=== PATIENT | female | born 2000 | race American Indian/Alaskan Native ===

== ENCOUNTER 2020-08-18 19:21 | Emergency (ER) | payer SELFPAY ==
--- NOTE | 2020-08-18 19:44 | Emergency Department Report ---
- General Chief Complaint: Animal Bite Stated Complaint: SPIDER BITE/RT SIDE Time Seen by Provider: 08/18/20 19:38 Source: patient Mode of arrival: Ambulatory Limitations: No Limitations - History of Present Illness Initial Comments: 20-year-old female presents to the emerge department complaining of pain to her right flank in the due to a evolving insect bite. Ports no fever, chills, sweats reports no numbness no tingling. -: days(s) (3) Location: chest Patient Tetanus UTD: No Associated Symptoms: other. denies: suspect foreign body present - Related Data Previous Rx's Medication Instructions Recorded Last Taken Type Mupirocin [Bactroban 2%] 1 applic TP TID #1 tube 08/18/20 Unknown Rx Sulfamethoxazole/Trimethoprim 1 each PO BID #20 tablet 08/18/20 Unknown Rx [Bactrim DS TAB] cephALEXin [Keflex] 500 mg PO Q8HR #30 cap 08/18/20 Unknown Rx Allergies Allergy/AdvReac Type Severity Reaction Status Date / Time almond AdvReac Unknown Verified 08/18/20 19:34 apple AdvReac Unknown Verified 08/18/20 19:34 hernandez AdvReac Unknown Verified 08/18/20 19:34 ED Review of Systems ROS: Stated complaint: SPIDER BITE/RT SIDE Other details as noted in HPI Comment: All other systems reviewed and negative ED Past Medical Hx - Past Medical History Previous Medical History?: No - Surgical History Past Surgical History?: No - Social History Smoking Status: Never Smoker Substance Use Type: None - Medications Home Medications: Home Medications Medication Instructions Recorded Confirmed Last Taken Type Mupirocin [Bactroban 2%] 1 applic TP TID #1 tube 08/18/20 Unknown Rx Sulfamethoxazole/Trimethoprim 1 each PO BID #20 tablet 08/18/20 Unknown Rx [Bactrim DS TAB] cephALEXin [Keflex] 500 mg PO Q8HR #30 cap 08/18/20 Unknown Rx ED Physical Exam - General Limitations: No Limitations General appearance: alert, in no apparent distress - Head Head exam: Present: atraumatic, normocephalic - Eye Eye exam: Present: normal appearance - ENT ENT exam: Present: mucous membranes moist - Neck Neck exam: Present: normal inspection - Respiratory Respiratory exam: Present: normal lung sounds bilaterally. Absent: respiratory distress - Cardiovascular Cardiovascular Exam: Present: regular rate, normal rhythm. Absent: systolic murmur, diastolic murmur, rubs, gallop - GI/Abdominal GI/Abdominal exam: Present: soft, normal bowel sounds - Extremities Exam Extremities exam: Present: normal inspection - Back Exam Back exam: Present: normal inspection - Neurological Exam Neurological exam: Present: alert, oriented X3, CN II-XII intact - Psychiatric Psychiatric exam: Present: normal affect, normal mood - Skin Skin exam: Present: warm, dry, erythema (Pustule noted no induration early boil/abscess formation). Absent: rash ED Medical Decision Making - Medical Decision Making Small papule/pustule to the right flank and rib area. No induration no cellulitis no meningitis. No need for incision at this present time advised patient to take the medication off and follow-up in 48 hours for reevaluation Critical care attestation.: If time is entered above; I have spent that time in minutes in the direct care of this critically ill patient, excluding procedure time. ED Disposition Clinical Impression: Insect bite Disposition: DC-01 TO HOME OR SELFCARE Is pt being admited?: No Does the pt Need Aspirin: No Condition: Stable Instructions: Spider Bite, Insect Bite, Adult Prescriptions: Sulfamethoxazole/Trimethoprim [Bactrim DS TAB] 1 each PO BID #20 tablet Mupirocin [Bactroban 2%] 1 applic TP TID #1 tube cephALEXin [Keflex] 500 mg PO Q8HR #30 cap Referrals: YUDY COLON MD [Staff Physician] - 3-5 Days
== END 2020-08-18 19:56 | disposition home or self-care (01) ==
LOC: ED 19:21
DX: S30.861A Insect bite (nonvenomous) of abdominal wall, initial encounter (principal); Z79.899 Other long term (current) drug therapy; Z91.018 Allergy to other foods; W57.XXXA Bitten or stung by nonvenomous insect and other nonvenomous arthropods, initial encounter; Y93.89 Activity, other specified; Y92.89 Other specified places as the place of occurrence of the external cause; Y99.8 Other external cause status
CPT/HCPCS: 99282

== ENCOUNTER 2020-10-19 07:41 | Emergency (ER) | payer SELFPAY ==
[2020-10-19] MEDS ORDERED: predniSONE 20 MG TAB PO ONE (08:04)
[2020-10-19] MEDS ORDERED: ALBUTEROL 2.5 MG/3 ML NEBU IH ONE ×2 (08:04→09:45)
[2020-10-19] MEDS ORDERED: IPRATROPIUM 0.02% NEBU 2.5 ML IH ONE ×2 (08:04→09:45)
--- NOTE | 2020-10-19 08:08 | Emergency Department Report ---
HPI - General Chief Complaint: Adult Asthma Time Seen by Provider: 10/19/20 08:00 - [facility] HPI: Room 25 The patient is a 20-year-old female present with a chief complaint of "asthma attack." Patient states last night she began having asthma attack which i ncludes shortness of breath and wheezing. Patient states she is also had a cough productive of green sputum for the past 3 days. Patient denies history of fever. Patient denies any known contact with Covid positive patient ED Past Medical Hx - Past Medical History Hx Asthma: Yes - Surgical History Past Surgical History?: No - Family History Family history: no significant - Social History Smoking Status: Never Smoker Substance Use Type: Alcohol (Occasional), Marijuana - Medications Home Medications: Home Medications Medication Instructions Recorded Confirmed Last Taken Type Albuterol Mdi (or & Nicu Only) 2 puff IH QID PRN #8.5 gram 10/19/20 Unknown Rx [ProAir HFA Inhaler] Prednisone [predniSONE 10 mg 10 mg PO .TAPER #1 tab.ds.pk 10/19/20 Unknown Rx (6-Day Pack, 21 Tabs)] ED Review of Systems ROS: Stated complaint: ASTHMA ATTACK Other details as noted in HPI Constitutional: denies: fever Eyes: denies: eye pain ENT: denies: throat pain Respiratory: cough, shortness of breath, wheezing Cardiovascular: denies: chest pain Endocrine: no symptoms reported Gastrointestinal: denies: abdominal pain Genitourinary: denies: dysuria Musculoskeletal: denies: back pain Neurological: denies: headache Physical Exam - Physical Exam Vital Signs: Vital Signs 10/19/20 07:52 Temperature 99.2 F Pulse Rate 104 H Respiratory 32 H Rate Blood Pressure 128/85 O2 Sat by Pulse 98 Oximetry Physical Exam: GENERAL: The patient is well-developed well-nourished female sitting on stretcher not appearing to be in acute distress. [] HEENT: Normocephalic. Atraumatic. Extraocular motions are intact. Patient has moist mucous membranes. NECK: Supple. Trachea midline CHEST/LUNGS: Occasional wheezing auscultated to the right upper and right lower lobes. There is no respiratory distress noted. HEART/CARDIOVASCULAR: Regular. There is no tachycardia. There is no gallop rub or murmur. ABDOMEN: Abdomen is soft, nontender. Patient has normal bowel sounds. There is no abdominal distention. SKIN: There is no rash. There is no edema. There is no diaphoresis. NEURO: The patient is awake, alert, and oriented. The patient is cooperative. The patient has no focal neurologic deficits. The patient has normal speech MUSCULOSKELETAL: There is no evidence of acute injury. ED Course Vital Signs 10/19/20 07:52 Temperature 99.2 F Pulse Rate 104 H Respiratory 32 H Rate Blood Pressure 128/85 O2 Sat by Pulse 98 Oximetry - Reevaluation(s) Reevaluation #1: 10/19/20 09:44 Status post neb patient states she is feeling slightly worse including shortness of breath and chest pain. On exam the patient no longer has faint wheezing at the right upper and lower lobes. Will order blood work, EKG and analgesia. Patient states she drove herself to the emergency department and there are no other drivers present Reevaluation #2: 10/19/20 11:54 Patient states she feels improved ED Medical Decision Making - Lab Data Result diagrams: 10/19/20 10:31 10/19/20 10:31 Laboratory Tests 10/19/20 10/19/20 10/19/20 10:31 10:31 10:31 WBC 9.5 RBC 5.03 Hgb 11.9 Hct 37.8 MCV 75 L MCH 24 L MCHC 31 RDW 13.8 Plt Count 278 Lymph % (Auto) 9.1 L Yancey % (Auto) 4.3 Eos % (Auto) 0.5 Baso % (Auto) 0.4 Lymph # (Auto) 0.9 L Yancey # (Auto) 0.4 Eos # (Auto) 0.0 Baso # (Auto) 0.0 Seg Neutrophils % 85.7 H Seg Neutrophils # 8.1 H D-Dimer < 135.00 Sodium 139 Potassium 3.3 L Chloride 105.8 Carbon Dioxide 24 Anion Gap 13 BUN 11 Creatinine 0.7 Estimated GFR > 60 BUN/Creatinine Ratio 16 Glucose 104 H Calcium 8.8 Total Creatine Kinase 264 H CK-MB (CK-2) 1.8 CK-MB (CK-2) Rel Index 0.6 Troponin T < 0.010 NT-Pro-B Natriuret Pep 92.76 HCG, Qual 10/19/20 10:31 WBC RBC Hgb Hct MCV MCH MCHC RDW Plt Count Lymph % (Auto) Yancey % (Auto) Eos % (Auto) Baso % (Auto) Lymph # (Auto) Yancey # (Auto) Eos # (Auto) Baso # (Auto) Seg Neutrophils % Seg Neutrophils # D-Dimer Sodium Potassium Chloride Carbon Dioxide Anion Gap BUN Creatinine Estimated GFR BUN/Creatinine Ratio Glucose Calcium Total Creatine Kinase CK-MB (CK-2) CK-MB (CK-2) Rel Index Troponin T NT-Pro-B Natriuret Pep HCG, Qual Negative - EKG Data -: EKG Interpreted by Me EKG shows normal: sinus rhythm Rate: normal - EKG Data When compared to previous EKG there are: previous EKG unavailable Interpretation: other (No ischemic changes seen) - Radiology Data Radiology results: report reviewed (Chest x-ray), image reviewed (Chest x-ray) interpreted by me: Chest x-ray-no focal infiltrates, no pneumothorax. No foreign body seen [facility] [address] [place] [address] XRay Report Signed Patient: LINDA WESLEY MR#: [id number] 4 : 2000 Acct:[id number] Age/Sex: 20 / F ADM Date: 10/19/20 Loc: ED Attending Dr: Ordering Physician: JAIME FAIRBANKS MD Date of Service: 10/19/20 Procedure(s): XR chest 1V ap Accession Number(s): [id number] cc: JAIME FAIRBANKS MD Fluoro Time In M inutes: CHEST 1 VIEW 10/19/2020 10:23 AM INDICATION / CLINICAL INFORMATION: Wheezing, productive cough. COMPARISON: None available. FINDINGS: SUPPORT DEVICES: None. HEART / MEDIASTINUM: No significant abnormality. LUNGS / PLEURA: No significant pulmonary or pleural abnormality. No pneumothorax. ADDITIONAL FINDINGS: No significant additional findings. IMPRESSION: 1. No acute findings. Signer Name: Mino Corcoran MD Signed: 10/19/2020 11:25 AM Workstation Name: [employer] Transcribed By: CW Dictated By: KOSTAS CORCORAN MD Electronically Authenticated By: KOSTAS CORCORAN MD Signed Date/Time: 10/19/20 1125 DD/ 1125 TD/TT: - Differential Diagnosis Acute asthma exacerbation, bronchitis, pneumonia Critical care attestation.: If time is entered above; I have spent that time in minutes in the direct care of this critically ill patient, excluding procedure time. ED Disposition Clinical Impression: Acute asthma exacerbation Disposition: DC-01 TO HOME OR SELFCARE Is pt being admited?: No Does the pt Need Aspirin: No Condition: Stable Instructions: Asthma, Adult Additional Instructions: Return to the emergency department should you develop worsening symptoms, inability to tolerate food or liquids, high fever or any other concerns Prescriptions: Prednisone [predniSONE 10 mg (6-Day Pack, 21 Tabs)] 10 mg PO .TAPER #1 tab.ds.pk Albuterol Mdi (or & Nicu Only) [ProAir HFA Inhaler] 2 puff IH QID PRN #8.5 gram PRN Reason: Shortness Of Breath Referrals: CAT MCKEON MD [Staff Physician] - 3-5 Days (Dr. Mckeon is a primary physician. Please follow-up with him to be established as a patient)
[2020-10-19] MEDS ORDERED: MAGNESIUM SULFATE 2 GM/50 ML BAG IV ONE (09:43)
[2020-10-19] MEDS ORDERED: KETOROLAC 30 MG/1 ML INJ IV ONE (09:43)
[2020-10-19 10:50] LABS: Basophils % (Auto) 0.4 % (0.0-1.8); Eosinophils % (Auto) 0.5 % (0.0-4.3); Hematocrit 37.8 % (30.3-42.9); Hemoglobin 11.9 gm/dl (10.1-14.3); Lymphocytes # (Auto) 0.9 K/mm3 (1.2-5.4); Lymphocytes % (Auto) 9.1 % (13.4-35.0); Mean Corpuscular HGB Conc 31 % (30-34); Mean Corpuscular Volume 75 fl (79-97); Monocytes # (Auto) 0.4 K/mm3 (0.0-0.8); Monocytes % (Auto) 4.3 % (0.0-7.3); Platelet Count 278 K/mm3 (140-440); Red Blood Count 5.03 M/mm3 (3.65-5.03); Red Cell Distribution Width 13.8 % (13.2-15.2)
[2020-10-19 11:16] LABS: Creatine Kinase MB 1.8 ng/mL (0.0-4.0)
[2020-10-19 11:17] LABS: Blood Urea Nitrogen 11 mg/dL (7-17); Calcium 8.8 mg/dL (8.4-10.2); Hemolysis Index 2
[2020-10-19 11:19] LABS: BUN/Creatinine Ratio 16
--- NOTE | 2020-10-19 11:30 | XRay Report ---
CHEST 1 VIEW 10/19/2020 10:23 AM INDICATION / CLINICAL INFORMATION: Wheezing, productive cough. COMPARISON: None available. FINDINGS: SUPPORT DEVICES: None. HEART / MEDIASTINUM: No significant abnormality. LUNGS / PLEURA: No significant pulmonary or pleural abnormality. No pneumothorax. ADDITIONAL FINDINGS: No significant additional findings. IMPRESSION: 1. No acute findings. Signer Name: Mino Corcoran MD Signed: 10/19/2020 11:25 AM Workstation Name: [employer]
[2020-10-19 11:58] VITALS: BP 117/89
--- NOTE | 2020-10-22 10:26 | Electrocardiograph Report ---
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
== END 2020-10-19 14:47 | disposition home or self-care (01) ==
LOC: ED 07:41
DX: J45.901 Unspecified asthma with (acute) exacerbation (principal); F12.90 Cannabis use, unspecified, uncomplicated; Z79.899 Other long term (current) drug therapy; Z91.018 Allergy to other foods
CPT/HCPCS: 36415; 71045; 80048; 82550; 82553; 83880; 84484; 84703; 85025; 85379; 93005; 94640; 96365; 96375; 99284; J1885; J3475; J7512; 94644

== ENCOUNTER 2020-11-06 23:56 | Emergency (ER) | payer SELFPAY ==
[2020-11-07] MEDS ORDERED: BUTALB/ACETAMINOPHEN/CAFFEINE TAB PO ONE (03:53)
[2020-11-07] MEDS ORDERED: IBUPROFEN 600 MG TAB PO ONE (03:53)
--- NOTE | 2020-11-07 05:40 | Emergency Department Report ---
- General Chief Complaint: Upper Respiratory Infection Stated Complaint: SEVERE HEADACHES PUI?: No Source: patient Mode of arrival: Ambulatory Limitations: No Limitations - History of Present Illness Initial Comments: Patient is a nulliparous 20-year-old -[place] female with past medical history of asthma who presents to the ED with complaint of acute onset persistent frontal sinus pressure, nasal and sinus congestion, persistent dry cough and frontal headache for the last 1 week, worse in the last 2 days. Patient states that she has been taking [id number] medications with no relief. Patient states that the dry cough is especially worse at night leading to pleuritic chest pain. Patient denies fever, chills, nausea, vomiting, dizziness, syncope, sore throat, abdominal pain, diarrhea, dysuria, urinary frequency and urgency, neck pain, change in vision or back pain. MD Complaint: cough, rhinorrhea, nasal congestion, sinus pain, other (Frontal and maxillary sinus pressure and headache) -: Sudden, week(s) (1) Severity: moderate Severity scale (0 -10): 5 Quality: sharp, aching Consistency: constant Improves With: nothing Worsens With: nothing Context: sick contacts Associated Symptoms: denies other symptoms, headache, rhinorrhea, nasal congestion, cough. denies: fever, chills, myalgias, diaphoresis, sore throat, stiff neck, chest pain, shortness of breath, abdominal pain, nausea, vomiting, diarrhea, dysuria, rash, confusion, right sweats, weight loss, hoarseness, ear pain Treatments Prior to Arrival: none - Related Data Previous Rx's Medication Instructions Recorded Last Taken Type Albuterol Mdi (or & Nicu Only) 2 puff IH QID PRN #8.5 gram 10/19/20 Unknown Rx [ProAir HFA Inhaler] Prednisone [predniSONE 10 mg 10 mg PO .TAPER #1 tab.ds.pk 10/19/20 Unknown Rx (6-Day Pack, 21 Tabs)] Azithromycin [Zithromax Z-RAFAT] 250 mg PO DAILY #6 tablet 11/07/20 Unknown Rx Benzonatate [Tessalon Perles] 100 mg PO Q8HR #30 capsule 11/07/20 Unknown Rx Fexofenadine/Pseudoephedrine 1 each PO DAILY #30 tab.er.24h 11/07/20 Unknown Rx [Jenny-D 24 Hour Tablet] Ibuprofen [Motrin] 600 mg PO Q8H PRN #30 tablet 11/07/20 Unknown Rx Allergies Allergy/AdvReac Type Severity Reaction Status Date / Time almond AdvReac Unknown Verified 10/19/20 07:47 apple AdvReac Unknown Verified 10/19/20 07:47 hernandez AdvReac Unknown Verified 10/19/20 07:47 ED Review of Systems ROS: Stated complaint: SEVERE HEADACHES Other details as noted in HPI Constitutional: denies: chills, fever Eyes: denies: eye pain, eye discharge, vision change ENT: congestion, other (Frontal sinus pressure and headache). denies: ear pain, throat pain Respiratory: cough. denies: shortness of breath, wheezing Cardiovascular: chest pain (Pleuritic chest pain). denies: palpitations Endocrine: no symptoms reported Gastrointestinal: denies: abdominal pain, nausea, diarrhea Genitourinary: denies: urgency, dysuria, discharge Musculoskeletal: denies: back pain, joint swelling, arthralgia Skin: denies: rash, lesions Neurological: headache (Frontal headache). denies: weakness, paresthesias Psychiatric: denies: anxiety, depression Hematological/Lymphatic: denies: easy bleeding, easy bruising ED Past Medical Hx - Past Medical History Hx Asthma: Yes - Social History Smoking Status: Never Smoker Substance Use Type: None - Medications Home Medications: Home Medications Medication Instructions Recorded Confirmed Last Taken Type Albuterol Mdi (or & Nicu Only) 2 puff IH QID PRN #8.5 gram 10/19/20 Unknown Rx [ProAir HFA Inhaler] Prednisone [predniSONE 10 mg 10 mg PO .TAPER #1 tab.ds.pk 10/19/20 Unknown Rx (6-Day Pack, 21 Tabs)] Azithromycin [Zithromax Z-RAFAT] 250 mg PO DAILY #6 tablet 11/07/20 Unknown Rx Benzonatate [Tessalon Perles] 100 mg PO Q8HR #30 capsule 11/07/20 Unknown Rx Fexofenadine/Pseudoephedrine 1 each PO DAILY #30 tab.er.24h 11/07/20 Unknown Rx [Jenny-D 24 Hour Tablet] Ibuprofen [Motrin] 600 mg PO Q8H PRN #30 tablet 11/07/20 Unknown Rx ED Physical Exam - General Limitations: No Limitations General appearance: alert, in no apparent distress - Head Head exam: Present: atraumatic, normocephalic - Eye Eye exam: Present: normal appearance - ENT ENT exam: Present: normal orophraynx, mucous membranes moist, TM's normal bilaterally, normal external ear exam, other (Palpable frontal and maxillary sinus tenderness; grossly congested nasal passages) - Neck Neck exam: Present: normal inspection, full ROM - Respiratory Respiratory exam: Present: normal lung sounds bilaterally. Absent: respiratory distress, wheezes, rales, rhonchi, chest wall tenderness, accessory muscle use, decreased breath sounds, prolonged expiratory - Cardiovascular Cardiovascular Exam: Present: regular rate, normal rhythm, normal heart sounds. Absent: systolic murmur, diastolic murmur, rubs, gallop - GI/Abdominal GI/Abdominal exam: Present: soft, normal bowel sounds. Absent: tenderness, guarding, rebound, hyperactive bowel sounds, hypoactive bowel sounds, organomegaly - Extremities Exam Extremities exam: Present: normal inspection, full ROM, normal capillary refill - Back Exam Back exam: Present: normal inspection, full ROM. Absent: tenderness, CVA tenderness (R), CVA tenderness (L), muscle spasm, paraspinal tenderness, vertebral tenderness - Neurological Exam Neurological exam: Present: alert, oriented X3, CN II-XII intact, normal gait, reflexes normal - Psychiatric Psychiatric exam: Present: normal affect, normal mood - Skin Skin exam: Present: warm, dry, intact, normal color. Absent: rash ED Course Vital Signs 11/07/20 00:53 Temperature 98.5 F Pulse Rate 67 Respiratory 18 Rate Blood Pressure 113/68 O2 Sat by Pulse 98 Oximetry ED Medical Decision Making - Medical Decision Making This is a nulliparous 20-year-old -[place] female with past medical history of asthma who presents to the ED with complaint of acute onset persistent frontal sinus pressure, nasal and sinus congestion, persistent dry c ough and frontal headache for the last 1 week, worse in the last 2 days. Patient states that she has been taking [id number] medications with no relief. Patient states that the dry cough is especially worse at night leading to pleuritic chest pain. In the ED, patient is alert and oriented x3 and is not in any distress. Patient is hemodynamically stable in the ED. Patient was treated for pain in the ED for headache and on reevaluation, patient's pain is well controlled with medications. Patient was discharged home on medications for pain and for suspected sinusitis and acute asthmatic bronchitis based on the history and physical exam findings. Patient was therefore advised to follow-up with her primary care physician in 7 to 10 days for reevaluation. Patient was advised to return to the ED immediately if symptoms get worse. - Differential Diagnosis Sinusitis; URI; bronchitis; asthma; allergic rhinitis; sinus headache Critical care attestation.: If time is entered above; I have spent that time in minutes in the direct care of this critically ill patient, excluding procedure time. ED Disposition Clinical Impression: Acute upper respiratory infection, Acute non-recurrent frontal sinusitis, Acute asthmatic bronchitis, Sinus headache Disposition: TO HOME OR SELFCARE Is pt being admited?: No Does the pt Need Aspirin: No Condition: Stable Instructions: Acute Bronchitis (ED), Sinusitis, Adult, [id number], Upper Respiratory Infection, Adult, [id number], Cough, Adult, [id number] Additional Instructions: Your symptoms are likely due to acute sinusitis versus upper respiratory infection versus bronchitis due to asthma and chronic rhinitis. Therefore take medications with food, drink plenty of fluids and follow-up with your primary care physician in 5 to 7 days for reevaluation. Return to the ED immediately if symptoms get worse. Prescriptions: Fexofenadine/Pseudoephedrine [Jenny-D 24 Hour Tablet] 1 each PO DAILY #30 tab.er.24h Ibuprofen [Motrin] 600 mg PO Q8H PRN #30 tablet PRN Reason: Pain Benzonatate [Tessalon Perles] 100 mg PO Q8HR #30 capsule Azithromycin [Zithromax Z-RAFAT] 250 mg PO DAILY #6 tablet Referrals: [facility] [Provider Group] - 7-10 days Forms: Work/School Release Form(ED) Time of Disposition: 05:43 Print Language: KOSOVAN
[2020-11-07 05:52] VITALS: BP 103/62
== END 2020-11-07 05:54 | disposition home or self-care (01) ==
LOC: ED 23:56
DX: J06.9 Acute upper respiratory infection, unspecified (principal); J45.909 Unspecified asthma, uncomplicated; J01.10 Acute frontal sinusitis, unspecified; R51.9 Headache, unspecified; Z79.899 Other long term (current) drug therapy; Z91.018 Allergy to other foods
CPT/HCPCS: 99282